=== PATIENT | female | born 1950 | race Caucasian/White ===

== ENCOUNTER 2016-04-28 09:54 | Emergency (ER) | payer OTHER ==
[2016-04-28 10:14] LABS: MANUAL DIFF NEEDED? NO
[2016-04-28 10:15] LABS: BASO% 0.3 % (0.0-0.8); EOS# 0.13 X1000 (0.0-0.7); EOS% 1.3 % (0.0-10.0); HEMATOCRIT 36.8 % (37.0-47.0); HEMOGLOBIN 12.4 g/dL (12.0-16.0); IMM GRAN# 0.02 X1000 (0.0-0.04); IMM GRAN% 0.2 % (0.0-0.5); LYMPH# 1.61 X1000 (1.2-3.4); LYMPH% 16.1 % (20.5-51.1); MCH 31.2 PG (27-31); MCHC 33.7 g/dL (33-37); MCV 92.7 FL (81-99); MONO# 0.49 X1000 (0.11-0.59); MONO% 4.9 % (1.7-9.3); MPV 9.4 FL (7.4-10.4); NEUT% 77.2 % (42.2-75.2); PLT 253 X1000 (130-400); RBC 3.97 XMIL (4.2-5.4)
[2016-04-28 10:31] LABS: AGAP 15; ALBUMIN 4.1 g/dL (3.5-5.0); ALKALINE PHOSPHATASE 47 U/L (32-104); BUN 11 mg/dL (8-22); CALCIUM 9.2 mg/dL (8.8-10.2); CHLORIDE 100 mmol/L (98-107); COSMO 274; GOT 23 U/L (10-30); GPT 17 U/L (10-36); POTASSIUM 3.6 mmol/L (3.5-5.1); SODIUM 135 mmol/L (136-145); TCO2 20 mmol/L (25-35); TOTAL PROTEIN 6.9 g/dL (6.3-8.3)
--- NOTE | 2016-04-28 10:36 | EKG Report ---
Test Performed on : 04/28/2016 10:22:33 AM Test Reason : fall ? seizure syncope Blood Pressure : / mmHG Vent. Rate : 102 BPM Atrial Rate : 102 BPM P-R Int : 170 ms QRS Dur : 070 ms QT Int : 352 ms P-R-T Axes : 080 068 071 degrees QTc Int : 458 ms Sinus tachycardia. Nonspecific ST abnormality Abnormal ECG No previous ECGs available Unconfirmed Result
[2016-04-28] MEDS ORDERED: NS 1,000 ML IV ONE (11:03)
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
[2016-04-28] MEDS ORDERED: ATIVAN IV ONE (11:18)
[2016-04-28] MEDS ORDERED: NORCO-7.5 PO ONE (11:18)
[2016-04-28] MEDS ORDERED: BOOSTRIX VACCINE IM ONE (11:18)
[2016-04-28 11:25] LABS: ACETAMINOPHEN < 1.2 ug/mL (10-30)
[2016-04-28] MEDS ORDERED: DERMABOND ONE (11:49)
--- NOTE | 2016-04-28 11:51 | Diag Imaging Result Document ---
PROCEDURE NAME: HEAD/C-SPINE W/O CONTRAST - 04/28/[address]: 04/28/2016. COMPARISON: None. FINDINGS: The ventricles and sulci are normal in size and contour. There is no mass, hemorrhage, or evidence of acute ischemia. The bony calvaria is intact. The visualized paranasal sinuses and mastoid air cells are clear. IMPRESSION: Negative head CT. CT CERVICAL SPINE: COMPARISON: None. FINDINGS: There is straightening of the cervical spine. No fracture or subluxation. There is severe disk degeneration at C5-6 with narrowing and large osteophyte formation. There is also severe multilevel facet degeneration scattered throughout numerous levels, bilaterally. At C4-5, there is a moderately large left parasagittal posterior disk herniation causing moderate flattening of the anterior cord. This herniated area measures about 3 x 5 mm. IMPRESSION: 1. Age-indeterminate disk herniation at C4-5. 2. Advanced cervical spondylosis.
--- NOTE | 2016-04-28 11:57 | Diag Imaging Result Document ---
PROCEDURE NAME: FACIAL BONES W/O CONTRAST - 04/28/2016 CT FACIAL BONES: COMPARISON: None. FINDINGS: There are severely depressed bilateral nasal bone fractures of the inferior nose. There is significant soft tissue swelling here. The anterior nasal septum is also fractured. The sinuses, mastoids, and middle ears are clear. Orbits and orbital contents are normal. Other bones are intact. IMPRESSION: Acute, severely depressed nasal bone fractures. Anterior nasal septum bony fracture.
[2016-04-28 12:36] LABS: URINE CULTURE PL NEEDED? NO; URINE SOURCE CLEAN CATCH
[2016-04-28 12:44] LABS: UR AMPHETAMINES QUAL NONE DETECTED (NONE DETECT); UR BARBITUATES QUAL NONE DETECTED (NONE DETECT); UR BENZODIAZEPIN QUAL NONE DETECTED (NONE DETECT); UR CANNABINOIDS QUAL NONE DETECTED (NONE DETECT); UR COCAINE QUAL NONE DETECTED (NONE DETECT); UR MDMA QUAL NONE DETECTED (NONE DETECT); UR METHADONE QUAL NONE DETECTED (NONE DETECT); UR METHAMPHETAMINE QUAL NONE DETECTED (NONE DETECT); UR OPIATES QUAL NONE DETECTED (NONE DETECT); UR OXYCODONE QUAL NONE DETECTED (NONE DETECT); UR PCP QUAL NONE DETECTED (NONE DETECT); UR TCA QUAL NONE DETECTED (NONE DETECT)
[2016-04-28 12:53] LABS: BILIRUBIN URINE NEGATIVE (NEGATIVE); BLOOD URINE TRACE (NEGATIVE); CLARITY CLEAR (CLEAR); COLOR YELLOW; LEUKOCYTES URINE TRACE (NEGATIVE); NITRITE URINE NEGATIVE (NEGATIVE); PROTEIN URINE TRACE mg/dL (NEGATIVE); UROBILINOGEN URINE NORMAL
[2016-04-28 12:55] LABS: URINE EPITHELIAL CELLS <10 /HPF (<10); URINE RBC <10 /HPF (<10); URINE WBC <10 /HPF (<10)
[2016-04-28] MEDS ORDERED: KEFZOL IM ONE (13:11)
[2016-04-28] MEDS ORDERED: KEFZOL 1 GM/D5W 50 ML IV ONE (13:21)
[2016-04-28 14:17] VITALS: BP 130/80
== END 2016-04-28 14:17 | disposition home or self-care (01) ==
LOC: P.ED 09:54
DX: S02.2XXA Fracture of nasal bones, initial encounter for closed fracture (principal); S01.21XA Laceration without foreign body of nose, initial encounter; S00.531A Contusion of lip, initial encounter; R04.0 Epistaxis; R94.31 Abnormal electrocardiogram [ECG] [EKG]; M47.892 Other spondylosis, cervical region; R56.9 Unspecified convulsions; W19.XXXA Unspecified fall, initial encounter; Z79.899 Other long term (current) drug therapy; M50.221 Other cervical disc displacement at C4-C5 level
CPT/HCPCS: 70450; 70486; 72125; 80053; 80305; 81001; 85025; 93005; G0480; J0690; J2060; J7030; 80320; 80324; 80329